=== PATIENT | male | born 1955 | race Caucasian/White ===

== ENCOUNTER 2023-01-27 08:19 | Day surgery (SDC) | payer MEDICARE ==
[2023-01-22 09:56] VITALS: BMI 29.5
[2023-01-22 10:10] LABS: Hemoglobin 14.9 g/dL (13.5-17.5); Mean Corpuscular HGB CONC 33.5 g/dL (32.0-36.0); Mean Corpuscular Hemoglobin 31.1 pg (27.0-33.0); Mean Corpuscular Volume 92.9 fl (81.2-95.1); Mean Platelet Volume 10.4 fl (7.4-10.4); Platelet Count 246 10x3/uL (150-450); RBC Distribution Width 12.4 % (11.5-14.5); Red Blood Cell (RBC) Count 4.79 10x6/uL (4.32-5.72); White Blood Cell (WBC) Count 9.8 10x3/uL (3.5-10.5)
[2023-01-22 10:28] LABS: Anion Gap 11 mmol/L (10-20); BUN (Urea Nitrogen) 20 mg/dL (8.4-25.7); Calc. Creatinine Clearance 83 mL/min (70-130); Calcium 9.5 mg/dL (7.8-10.44); Carbon Dioxide 26 mmol/L (23-31); Chloride 108 mmol/L (98-107); Estimated GFR 72; Glucose 108 mg/dL (80-115); Potassium 4.6 mmol/L (3.5-5.1); Sodium 140 mmol/L (136-145)
[2023-01-27] MEDS ORDERED: Heparin 10,000 UNITS/ 10 ML VIAL ONE (10:00)
[2023-01-27] MEDS ORDERED: Midazolam HCl 2 mg/2 ml Vial ONE (12:30)
[2023-01-27] MEDS ORDERED: fentaNYL 50 mcg/mL 1 mL Vial ONE (12:31)
[2023-01-27] MEDS ORDERED: Propofol 500 MG/50 ML VIAL ONE (12:31)
[2023-01-27] MEDS ORDERED: PROPOFOL 200 MG/20 ML VIAL ONE (12:47)
[2023-01-27] MEDS ORDERED: Lidocaine 1% (PF) 30 ML VIAL ONE (12:51)
[2023-01-27] MEDS ORDERED: Isoproterenol 0.2 MG/1 ML AMP ONE (13:23)
[2023-01-27] MEDS ORDERED: Flecainide 50 MG TAB PO SCH (16:30)
[2023-01-27] MEDS ORDERED: Rosuvastatin 5 MG TAB PO SCH (21:00)
[2023-01-28] MEDS ORDERED: Flecainide 50 MG TAB PO SCH (04:00)
[2023-01-28] MEDS ORDERED: Lisinopril 2.5 MG TAB PO SCH (09:00)
== END 2023-01-27 19:40 | disposition home or self-care (01) ==
LOC: SDC 08:19
PROVIDERS: ATTEND Internal Medicine Cardiovascular Disease
DX: I48.0 Paroxysmal atrial fibrillation (principal); I47.1 Supraventricular tachycardia; I44.7 Left bundle-branch block, unspecified; I36.1 Nonrheumatic tricuspid (valve) insufficiency; I10 Essential (primary) hypertension; E78.5 Hyperlipidemia, unspecified; Z87.891 Personal history of nicotine dependence; Z79.899 Other long term (current) drug therapy
CPT/HCPCS: 80048; 85027; 93005 ×2; 93620; 93623; 93653; J3010; 93010; C1730; C1732; C1760; C1769; C1894; J1644; J2001; J2250; J2704